=== PATIENT | male | born 1995 | race Caucasian/White ===

== ENCOUNTER → 2019-08-21 | Emergency (ER) | payer MEDICAID, OTHER ==
[~2019-08-21] VITALS: Ht 182.9 cm; Wt 65.8 kg
[2019-08-21 10:16] VITALS: BP 141/78
== END | disposition left against medical advice (07) ==
LOC: ER 09:38
DX: F41.9 Anxiety disorder, unspecified (principal); Z53.21 Procedure and treatment not carried out due to patient leaving prior to being seen by health care provider

== ENCOUNTER 2020-04-26 15:08 | Emergency (ER) | payer OTHER, MEDICAID ==
[~2020-04-26] VITALS: Ht 182.9 cm; Wt 68.0 kg
[2020-04-26] MEDS ORDERED: LORazepam 2MG/ML-1ML VIAL IV ONE (15:15)
[2020-04-26] MEDS ORDERED: SODIUM CHLORIDE 0.9% 1,000 ML IV ONE ×2 (15:15)
[2020-04-26 15:38] LABS: Basophils # (auto) 0 10 ^3/uL (0-0.2); Basophils % (auto) 0.6 % (0.0-2.0); Eosinophils # (auto) 0.1 10 ^3/uL (0-0.8); Hematocrit 48.4 % (41.0-53.0); Hemoglobin 16.8 g/dL (13.5-17.5); Lymphocytes # (auto) 1.8 10 ^3/uL (0.4-5.4); Lymphocytes % (auto) 26.8 % (10.0-50.0); Mean Corpuscular Hemoglobin 30.7 pg (28.0-32.0); Mean Corpuscular Hgb Conc. 34.7 g/dL (32.0-36.0); Mean Corpuscular Volume 88.6 fL (80.0-100.0); Monocytes # (auto) 0.4 10 ^3/uL (0-1.3); Monocytes % (auto) 6.6 % (0.0-12.0); Neutrophils # (auto) 4.3 10 ^3/uL (1.6-8.6); Nucleated Red Blood Cells % 0.1 %; Platelet Count (auto) 186 10^3/uL (140-450); Red Blood Cells 5.46 10^6/uL (4.5-5.90); Red Cell Distribution Width 12.8 % (11.8-14.3); White Blood Cell 6.6 10^3/uL (4.4-10.8)
[2020-04-26 15:49] VITALS: BP 137/92
[2020-04-26 15:59] LABS: Calcium 8.8 mg/dL (8.5-10.1); Potassium 4.2 mmol/L (3.5-5.1)
[2020-04-26] MEDS ORDERED: ONDANSETRON HCL 4 MG/2 ML VIAL IV ONE (16:00)
[2020-04-26 16:03] LABS: BUN/Creatinine Ratio 11.7; Bilirubin, Total 0.5 mg/dL (0.2-1.0); Total Protein 7.1 g/dL (6.4-8.2)
[2020-04-26 16:32] LABS: Urine Bacteria NONE SEEN /hpf (None Seen); Urine Blood Negative /uL (Negative); Urine Specific Gravity 1.022 (1.001-1.035); Urine WBC 1 /hpf (0 - 3)
== END 2020-04-26 17:25 | disposition home or self-care (01) ==
LOC: ER 15:08 → EDBD 15:08 → ER 17:25
DX: F41.9 Anxiety disorder, unspecified (principal); E86.0 Dehydration
CPT/HCPCS: 36415; 71045; 80053; 81001; 85025; 96361; 96374; 96375; 99284; J2060; J2405

== ENCOUNTER 2021-02-08 15:31 | Emergency (ER) | payer OTHER, MEDICAID ==
[~2021-02-08] VITALS: Ht 182.9 cm; Wt 72.6 kg
[2021-02-08] MEDS ORDERED: SODIUM CHLORIDE 0.9% 1,000 ML IV ONE (15:45)
[2021-02-08 16:57] LABS: Amphetamine Screen, Urine POSITIVE (NEGATIVE); Barbiturate Scree,Urine NEGATIVE (NEGATIVE); Benzodiazephine Screen, Urine NEGATIVE (NEGATIVE); Cannabinoid Screen, Urine POSITIVE (NEGATIVE); Cocaine Screen, Urine NEGATIVE (NEGATIVE); Opiate Scree,Urine NEGATIVE (NEGATIVE); Phencyclidine Screen, Urine NEGATIVE (NEGATIVE)
[2021-02-08 18:04] LABS: Basophils # (auto) 0 10 ^3/uL (0-0.2); Basophils % (auto) 0.2 % (0.0-2.0); Eosinophils # (auto) 0 10 ^3/uL (0-0.8); Eosinophils % (auto) 0.1 % (0.0-7.0); Hematocrit 45.7 % (41.0-53.0); Hemoglobin 15.1 g/dL (13.5-17.5); Lymphocytes % (auto) 7.7 % (10.0-50.0); Mean Corpuscular Hemoglobin 28.4 pg (28.0-32.0); Monocytes # (auto) 0.7 10 ^3/uL (0-1.3); Monocytes % (auto) 5.8 % (0.0-12.0); Neutrophils # (auto) 10.8 10 ^3/uL (1.6-8.6); Neutrophils % (auto) 86.2 % (37.0-80.0); Red Blood Cells 5.31 10^6/uL (4.5-5.90); Red Cell Distribution Width 12.8 % (11.8-14.3); White Blood Cell 12.5 10^3/uL (4.4-10.8)
[2021-02-08 18:23] LABS: Albumin 3.9 g/dL (3.4-5.0); Calcium 8.5 mg/dL (8.5-10.1); Potassium 4.3 mmol/L (3.5-5.1)
[2021-02-08 18:26] LABS: BUN/Creatinine Ratio 11.8; Bilirubin, Total 0.2 mg/dL (0.2-1.0); Total Protein 6.8 g/dL (6.4-8.2)
[2021-02-08 19:11] VITALS: BP 132/82
== END 2021-02-08 19:19 | disposition home or self-care (01) ==
LOC: ER 15:31 → EDBD 15:31 → ER 19:19
DX: T50.901A Poisoning by unspecified drugs, medicaments and biological substances, accidental (unintentional), initial encounter (principal); F12.10 Cannabis abuse, uncomplicated; Y92.89 Other specified places as the place of occurrence of the external cause
CPT/HCPCS: 36415; 80053; 80307; 80320; 85025; 93005; 96360; 99284; J7030